=== PATIENT | female | born 1935 | race Caucasian/White ===

== ENCOUNTER 2018-12-29 18:56 | Emergency (ER) | payer MEDICARE, BC ==
[~2018-12-29] VITALS: Ht 154.9 cm; Wt 31.8 kg
[~2018-12-29 18:56] MED LIST: ACID1TAB4 PO; ASCO500T9 PO; ASPI81TA31 PO; CALC-246 PO; CEFT1VIA55 IM; COLL30OI TOP; CRAN1CAP6 PO; CYAN250L PO; DONE10TA11 PO; LEVE100S PO; MELA3TAB PO; MIRT15TA PO; MULT1TAB11 PO; MUPI22OI2 NS; RISP1TAB7 PO; RISP2TAB5 PO; ZINC220C8 PO
--- NOTE | 2018-12-29 19:01 | NUR ---
Dr. Doe at bedside for MSE.
--- NOTE | 2018-12-29 19:38 | NUR ---
Xray at bedside.
[2018-12-29] MEDS ORDERED: LOPE2CAP PO (19:46)
[2018-12-29] MEDS ORDERED: SIME80TA14 PO (19:46)
[2018-12-29] MEDS ORDERED: LACT100C2 PO (19:46)
[2018-12-29] MEDS ORDERED: LIDO30AD10 TD (19:46)
[2018-12-29] MEDS ORDERED: CICL15CR12 TP (19:46)
[2018-12-29] MEDS ORDERED: TRAM50TA2 PO (19:46)
--- NOTE | 2018-12-29 20:58 | NUR ---
Called [facility] for transport of pt back to home, ETA given @[phone], trip#[id number].
--- NOTE | 2018-12-29 22:00 | NUR ---
[facility] arrived to ER to transport pt back to home. Report and documentation given to EMT.
--- NOTE | 2018-12-29 22:17 | NUR ---
Pt out of ER via [facility], report and documentation with EMT, no acute signs of distress, VSS, all belongings taken.
[2018-12-29 22:20] VITALS: BP 127/61
== END 2018-12-29 22:20 | disposition home or self-care (01) ==
LOC: ER 18:58
DX: S42.202A Unspecified fracture of upper end of left humerus, initial encounter for closed fracture (principal); Z88.0 Allergy status to penicillin; Z79.82 Long term (current) use of aspirin; Z79.899 Other long term (current) drug therapy; X50.0XXA Overexertion from strenuous movement or load, initial encounter; Y93.89 Activity, other specified; Y92.89 Other specified places as the place of occurrence of the external cause; Y99.8 Other external cause status
CPT/HCPCS: 73020; 73060; A4663